=== PATIENT | female | born 1995 | race African-American/Black ===

== ENCOUNTER 2023-04-21 15:19 | Emergency (ER) | payer MEDICAID ==
[~2023-04-21] VITALS: Ht 165.1 cm; Wt 86.0 kg
[2023-04-21 15:25] VITALS: O2SAT 99
[2023-04-21 16:37] LABS: CLARITY URINE CLOUDY (CLEAR); COLOR URINE DARK YELLOW (YELLOW); GLUCOSE URINE NEGATIVE (NEGATIVE); KETONES URINE TRACE (NEGATIVE); LEUKOCYTE ESTERASE URINE TRACE (NEGATIVE); NITRITE URINE NEGATIVE (NEGATIVE); OCCULT BLOOD URINE 2+ (NEGATIVE); PROTEIN URINE TRACE (NEGATIVE); SPECIFIC GRAVITY URINE 1.027 (1.005-1.030)
[2023-04-21 16:39] LABS: BASOPHILS % 0.5 % (0.0-2.0); DIFFERENTIAL COMMENT 0; EOSINOPHILS % 0.3 % (0.0-5.0); HEMATOCRIT. 30.6 % (36.0-48.0); HEMOGLOBIN. 9.5 g/dL (12.0-16.0); LYMPHOCYTES % 15.5 % (20.0-50.0); MEAN CORPUSCULAR HEMOGLOBIN 22.6 pg (28.0-32.0); MEAN CORPUSCULAR HGB CONC 31.1 g/dL (31.0-37.0); MEAN CORPUSCULAR VOLUME 72.7 fL (81.0-99.0); MEAN PLATELET VOLUME 9.2 fl (7.4-10.4); MONOCYTES % 4.9 % (2.0-8.0); NEUTROPHILS % 78.8 % (40.0-76.0); PLATELET 404 x1000/uL (130-400); RED BLOOD CELL COUNT 4.21 mill/uL (4.2-5.4); RED CELL DISTRIBUTION WIDTH 18.2 % (11.6-14.6); WHITE BLOOD COUNT 7.7 x1000/uL (4.5-11.0)
[2023-04-21 16:48] LABS: INR 1.1; PROTHROMBIN TIME 11.7 sec (9.6-11.0)
[2023-04-21 16:53] LABS: SQUAMOUS EPITHELIAL CELL URINE 1+ /lpf (RARE/1+)
[2023-04-21 16:55] LABS: BACTERIA URINE 1+; MUCUS URINE TRACE /lpf (< = 2+); RBC URINE 0-2 /hpf (0-2); WBC URINE 0-2 /hpf (0-2); YEAST URINE NONE SEEN
[2023-04-21 16:56] LABS: HCG SCREEN NEGATIVE
[2023-04-21 16:58] LABS: ALANINE AMINOTRANSFERASE 14 IU/L (13-61); ALBUMIN 4.1 g/dL (3.4-5.0); ASPARTATE AMINOTRANSFERASE 10 IU/L (15-37); BILIRUBIN TOTAL 0.6 mg/dL (0.1-1.0); CARBON DIOXIDE 27 mEq/L (21-32); CREATININE 0.9 mg/dL (0.6-1.3); GLUCOSE 91 mg/dL (70-105); PROTEIN TOTAL 8.3 g/dL (6.0-8.3); TROPONIN I HIGH SENSITIVITY 4 ng/L (<54); UREA NITROGEN BLOOD 12 mg/dL (7-21)
[2023-04-21 17:25] LABS: CHLORIDE 107 mEq/L (98-107); POTASSIUM 4.4 mEq/L (3.5-5.1); SODIUM 139 mEq/L (136-145)
[2023-04-21 17:56] VITALS: BP 140/83; PULSE 88; RESP 20; TEMP 97.8
== END 2023-04-21 17:59 | disposition home or self-care (01) ==
LOC: ER 15:19
DX: R55 Syncope and collapse (principal); D64.9 Anemia, unspecified
CPT/HCPCS: 36415; 71045; 80053; 81003; 81025; 82962; 84484; 84703; 85025; 99284

== ENCOUNTER 2023-06-21 16:27 | Emergency (ER) | payer OTHER, MEDICAID ==
[2023-06-21] MEDS ORDERED: RALTEGRAVIR 400 MG TABLET PO ONE (19:30)
[2023-06-21] MEDS ORDERED: TENOFOVIR 300MG TABLET PO ONE (19:30)
[2023-06-21] MEDS ORDERED: EMTRICITABINE 200MG CAPSULE PO ONE (19:30)
[2023-06-21] MEDS ORDERED: BICT1TAB PO (22:19)
== END 2023-06-21 19:18 | disposition home or self-care (01) ==
LOC: ER 16:27
DX: T14.90XA Injury, unspecified, initial encounter (principal); Z98.890 Other specified postprocedural states; X58.XXXA Exposure to other specified factors, initial encounter; Y93.89 Activity, other specified; Y92.89 Other specified places as the place of occurrence of the external cause; Y99.8 Other external cause status
CPT/HCPCS: 99284